=== PATIENT | female | born 1960 | race Caucasian/White ===

== ENCOUNTER 2016-04-30 18:49 | Emergency (ER) | payer OTHER ==
[~2016-04-30] VITALS: Ht 165.1 cm; Wt 61.1 kg
[~2016-04-30 18:49] MED LIST: ESTRACE1 MG PO; KLONOPIN0.5 M1 PO; LISINOPRIL-HCT1 EACH PO; OMEPRAZOLE40 M1 PO; WELLBUTRIN XL150 MG PO; ZOFRAN4 MG PO
[2016-04-30 21:06] LABS: ADD MIUA? YES; BILIRUBIN NEGATIVE; BLOOD NEGATIVE; COLOR YELLOW ((YELLOW)); GLUCOSE (STRIP) NEGATIVE; KETONES NEGATIVE; LEUKOCYTES SMALL; NITRITE NEGATIVE; PROTEIN (STRIP) NEGATIVE; SPECIFIC GRAVITY 1.019 (1.000-1.030); UROBILINOGEN 0.2 MG/DL (0.2-1.0)
[2016-04-30 21:13] LABS: HEMATOCRIT 37.9 % (36.0-46.0); MCH 30.8 PG (29.0-34.0); MCHC 33.2 G/DL (30.0-36.0); MCV 92.7 FL (83-99); MEAN PLAT.VOLUME 9.5 uM^3 (9.5-12.4); PLATELET COUNT 298 K/uL (156-360); RBC DIS.WIDTH-CV 12.1 % (11.8-14.6); RBC DIS.WIDTH-SD 41.4 % (39-53); RED BLOOD COUNT 4.09 M/uL (3.80-5.20); WHITE BLOOD COUNT 7.2 K/uL (4.1-10.2)
[2016-04-30 21:28] LABS: BACTERIA NONE SEEN /HPF; EPITHELIAL CELLS NONE SEEN /HPF; HYALINE CASTS 20-30 /LPF; MUCUS NONE SEEN /LPF; RED BLOOD CELLS NONE SEEN /HPF (0-5); UCUL ADDED? NO; WHITE BLOOD CELLS NONE SEEN /HPF (0-5)
[2016-04-30 21:28] LABS: CHLORIDE 102 mEq/L (99-109); POTASSIUM 5.2 mEq/L (3.7-5.4); SODIUM 140 mEq/L (136-147)
[2016-04-30 21:29] LABS: GLUCOSE 91 mg/dL (70-99)
[2016-04-30 21:31] LABS: ANION GAP 10 MEQ/L (2-14)
[2016-04-30 21:34] LABS: GFR ESTIMATE (CALCULATED) 38 mL/min/; UREA NITROGEN (BUN) 26 mg/dL (9-23)
[2016-04-30 21:51] LABS: TOTAL BILIRUBIN 0.8 mg/dL (0.0-1.0)
[2016-04-30 21:52] LABS: ALKALINE PHOSPHATASE 64 IU/L (3-129)
[2016-04-30 21:54] LABS: DIRECT BILIRUBIN 0.3 mg/dL (0.0-0.3)
[2016-04-30 21:55] LABS: LIPASE 66 U/L (1.0-51.0)
[2016-04-30 22:01] LABS: TROP-I INTERPRETATION NEGATIVE; TROPONIN-I < 0.01 ng/mL (0.0-0.30)
[2016-04-30 23:28] VITALS: BP 140/77
== END 2016-04-30 23:48 | disposition home or self-care (01) ==
LOC: EME 18:49
DX: N17.9 Acute kidney failure, unspecified (principal); R11.0 Nausea; M79.7 Fibromyalgia
CPT/HCPCS: 74176; 80048; 80076; 81003; 83690; 84484; 85027; 93005; 99281; 99284; J7030

== ENCOUNTER → 2016-05-11 | Outpatient (CLI) | payer OTHER | END | disposition home or self-care (01) | LOC: NUC 12:49 | DX: R10.9 Unspecified abdominal pain (principal) | CPT/HCPCS: 78227; A9537; J2805 ==

== ENCOUNTER → 2016-07-19 | Outpatient (CLI) | payer OTHER | END | disposition home or self-care (01) | LOC: NUC 08:24 | DX: R11.0 Nausea (principal) | CPT/HCPCS: 78264; A9541 ==

== ENCOUNTER 2017-06-17 18:37 | Emergency (ER) | payer OTHER ==
[~2017-06-17] VITALS: Ht 165.1 cm; Wt 60.0 kg
[2017-06-17 19:01] LABS: HEMATOCRIT 34.3 % (36.0-46.0); HEMOGLOBIN 12.2 G/DL (11.9-15.5); MCH 31.6 PG (29.0-34.0); MCHC 35.6 G/DL (30.0-36.0); MCV 88.9 FL (83-99); PLATELET COUNT 190 K/uL (156-360); RBC DIS.WIDTH-CV 11.6 % (11.8-14.6); RED BLOOD COUNT 3.86 M/uL (3.80-5.20); WHITE BLOOD COUNT 7.1 K/uL (4.1-10.2)
[2017-06-17 19:10] LABS: CHLORIDE 104 mEq/L (99-109); POTASSIUM 4.3 mEq/L (3.7-5.4); SODIUM 141 mEq/L (136-147)
[2017-06-17 19:11] LABS: GLUCOSE 85 mg/dL (70-99); PTT 31.5 SEC (25-37)
[2017-06-17 19:15] LABS: CREATININE 0.9 mg/dL (0.6-1.3); GFR ESTIMATE (CALCULATED) > 59 mL/min/
[2017-06-17 19:16] LABS: UREA NITROGEN (BUN) 18 mg/dL (9-23)
[2017-06-17] MEDS ORDERED: NORCO 5/3251 TABLET PO (22:49)
[2017-06-17 23:20] VITALS: BP 134/89
== END 2017-06-17 23:30 | disposition home or self-care (01) ==
LOC: EME 18:37
PROVIDERS: Emergency Medicine
DX: M79.661 Pain in right lower leg (principal); M79.7 Fibromyalgia
CPT/HCPCS: 80048; 85027; 85610; 85730; 93926; 93971; 99281; 99283